=== PATIENT | female | born 1975 | race Two or more races ===

== ENCOUNTER 2017-08-26 00:30 | Emergency (ER) | payer OTHER ==
[2017-08-26] MEDS ORDERED: cefTRIAXone IM 1 GM VIAL IM (01:33)
[2017-08-26] MEDS ORDERED: HYDROcodone/APAP 5/325MG 1 TAB TABLET (01:33)
[2017-08-26] MEDS: cefTRIAXone IM 1 GM VIAL IM (01:40)
[2017-08-26] MEDS: HYDROcodone/APAP 5/325MG 1 TAB TABLET PO (01:40)
== END 2017-08-26 01:14 | disposition home or self-care (01) ==
LOC: ER 00:30
DX: K02.9 Dental caries, unspecified (principal); K04.7 Periapical abscess without sinus
CPT/HCPCS: 96372; 99283-25; J0696

== ENCOUNTER 2018-08-04 10:15 | Emergency (ER) | payer OTHER ==
[~2018-08-04] VITALS: Ht 154.9 cm; Wt 81.6 kg
[~2018-08-04 10:15] MED LIST: CEPH-264 PO; METF10007 PO; NAPR-683 PO
--- NOTE | 2018-08-04 10:29 | PHYS DOC ---
Past Medical History Past Medical History: Diabetes-Type II Past Surgical History: No Surgical History Alcohol Use: None Drug Use: None Adult General Chief Complaint Chief Complaint: CHEST PAIN HPI HPI 43-year-old female presenting the emergency department today with chest pain. Her chest pain at the present for approximately 24 hours. It is a sharp shooting pain that is nonradiating. Its worse with deep breaths. She took ibuprofen with minimal relief. She denies any history of DVTs or family history of blood clotting disorders. She denies any recent immobilization or surgery. She denies hemoptysis. She has diabetes but denies hyperlipidemia or family history of heart disease or being a smoker. Review of systems is negative for abdominal pain nausea vomiting diaphoresis fevers or chills. All other review of systems is negative unless otherwise noted in history of present illness. ED course: 43-year-old female presenting the emergency department today with chest pain. Positive for 24 hours. EKG obtained and reviewed by myself shows sinus rhythm with a regular rate. QTc is mildly prolonged. ST segments are congruent. Not suggestive of ACS. Nonspecific T-wave flattening present. 11:13AM Repeat EKG shows no acute evolving changes. Repeat troponin is negative. Heart score calculated to be low risk. We will discharge patient home today to follow up with cardiology tomorrow or to return if her pain worsens.The patient has been examined and was not found to have an emergency medical condition. The patient was then discharged home in stable condition to follow up with their primary care physician over the next 1-2 days. They were to return if their symptoms worsened or if they were concerned for any reason. They were also instructed to return to the emergency department if they were unable to get the recommended and appropriate follow-up. [id number] discharge instructions and return precautions were given. Patient's questions were answered to their satisfaction. Patient is comfortable with plan. HEART SCORE History Slightly suspicious 0 Moderately suspicious +1 Highly suspicious +2 EKG 1 point: No ST depression but LBBB, LVH, repolarization changes (ex: digoxin); 2 points: ST depression/elevation not due to LBBB, LVH, or digoxin Normal 0 Non-specific repolarization disturbance +[address] depression +2 Age <45 0 45-65 +1 65 +2 Risk factors Risk factors: HTN, hypercholesterolemia, DM, obesity (BMI >30 kg/m), smoking (current, or smoking cessation 3 mo), positive family history (parent or sibling with CVD before age 65); atherosclerotic disease: prior MD, PCI/CABG, CVA/TIA, or peripheral arterial disease No known risk factors 0 1-2 risk factors +1 3 risk factors or history of atherosclerotic disease +2 Initial troponin Use local assays and corresponding cutoffs normal limit 0 1-2 normal limit +1 >2 normal limit +2 Total 2 points Review of Systems Review of Systems SEE ABOVE. Current Medications Current Medications Current Medications Medications (Trade) Dose Ordered Sig/Lily Start Time Stop Time Status Last Admin Dose Admin Morphine Sulfate (Morphine Sulfate) 2 mg PRN Q1HR PRN 08/04/18 11:15 08/04/18 23:00 08/04/18 12:31 2 MG Allergies Allergies Allergies Coded Allergies Type Severity Reaction Last Updated Verified No Known Drug Allergies 08/26/17 No Physical Exam Physical Exam SEE ABOVE Constitutional: Well developed, well nourished, no acute distress, non-toxic appearance. [] HENT: Normocephalic, atraumatic, bilateral external ears normal, oropharynx moist, no oral exudates, nose normal. [] Eyes: PERRLA, EOMI, conjunctiva normal, no discharge. [] Neck: Normal range of motion, no tenderness, supple, no stridor. [] Cardiovascular:Heart rate regular rhythm, no murmur [] Lungs & Thorax: Bilateral breath sounds clear to auscultation [] Abdomen: Bowel sounds normal, soft, no tenderness, no masses, no pulsatile masses. [] Skin: Warm, dry, no erythema, no rash. [] Back: No tenderness, no CVA tenderness. [] Extremities: No tenderness, no cyanosis, no clubbing, ROM intact, no edema. [] Neurologic: Alert and oriented X 3, normal motor function, normal sensory function, no focal deficits noted. [] Psychologic: Affect normal, judgement normal, mood normal. [] Current Patient Data Vital Signs Vital Signs Date Time Temp Pulse Resp B/P (MAP) Pulse Ox O2 Delivery O2 Flow Rate FiO2 08/04/18 12:31 78 109/58 (75) 99 Room Air 08/04/18 10:24 98.7 18 98.7 Lab Values Laboratory Tests Test 08/04/18 10:45 08/04/18 12:45 White Blood Count 5.2 x10^3/uL (4.0-11.0) Red Blood Count 4.64 x10^6/uL (3.50-5.40) Hemoglobin 13.6 g/dL (12.0-15.5) Hematocrit 40.5 % (36.0-47.0) Mean Corpuscular Volume 87 fL (79-100) Mean Corpuscular Hemoglobin 29 pg (25-35) Mean Corpuscular Hemoglobin Concent 34 g/dL (31-37) Red Cell Distribution Width 13.0 % (11.5-14.5) Platelet Count 181 x10^3/uL (140-400) Neutrophils (%) (Auto) 55 % (31-73) Lymphocytes (%) (Auto) 37 % (24-48) Monocytes (%) (Auto) 7 % (0-9) Eosinophils (%) (Auto) 1 % (0-3) Basophils (%) (Auto) 1 % (0-3) Neutrophils # (Auto) 2.8 x10^3uL (1.8-7.7) Lymphocytes # (Auto) 1.9 x10^3/uL (1.0-4.8) Monocytes # (Auto) 0.4 x10^3/uL (0.0-1.1) Eosinophils # (Auto) 0.1 x10^3/uL (0.0-0.7) Basophils # (Auto) 0.0 x10^3/uL (0.0-0.2) Segmented Neutrophils % 51 % (35-66) Lymphocytes % 39 % (24-48) Monocytes % 9 % (0-10) Eosinophils % 1 % (0-5) Platelet Estimate Adequate (ADEQUATE) D-Dimer (Ngozi) < 0.27 ug/mlFEU Sodium Level 142 mmol/L (136-145) Potassium Level 4.3 mmol/L (3.5-5.1) Chloride Level 105 mmol/L (98-107) Carbon Dioxide Level 28 mmol/L (21-32) Anion Gap 9 (6-14) Blood Urea Nitrogen 10 mg/dL (7-20) Creatinine 0.9 mg/dL (0.6-1.0) Estimated GFR (Cockcroft-Gault) 68.3 Glucose Level 235 mg/dL (70-99) H Calcium Level 9.3 mg/dL (8.5-10.1) Total Bilirubin 0.7 mg/dL (0.2-1.0) Direct Bilirubin 0.1 mg/dL (0.0-0.2) Aspartate Amino Transferase (AST) 34 U/L (15-37) Alanine Aminotransferase (ALT) 50 U/L (14-59) Alkaline Phosphatase 72 U/L (46-116) Troponin I Quantitative < 0.017 ng/mL (0.000-0.055) < 0.017 ng/mL (0.000-0.055) Total Protein 7.7 g/dL (6.4-8.2) Albumin 3.7 g/dL (3.4-5.0) Lipase 103 U/L (73-393) Laboratory Tests 08/04/18 10:45 Laboratory Tests 08/04/18 10:45 EKG EKG [] Radiology/Procedures Radiology/Procedures [] Course & Med Decision Making Course & Med Decision Making Pertinent Labs and Imaging studies reviewed. (See chart for details) [] Dragon Disclaimer Dragon Disclaimer This electronic medical record was generated, in whole or in part, using a voice recognition dictation system. Departure Departure Impression: Primary Impression: Chest pain Disposition: HOME, SELF-CARE Condition: STABLE Referrals: UNKNOWN PCP NAME (PCP) Patient Instructions: Chest Pain (Nonspecific) Additional Instructions: Thank you for allowing us to participate in your care today. Return to the emergency department you have any new or worsening symptoms, or if you are concerned for any reason. Return to emergency department if you have any new or concerning symptoms including but not limited to fever, chills, nausea, vomiting, intractable pain, any new rashes, chest pain, shortness of air , uncontrolled bleeding, difficulty breathing, and/or vision loss. Follow up with cardiology in 1-2 days. Call your Primary Doctor tomorrow and inform them of your visit today. If you do not have a primary care provider we are happy to provide you with a list of our primary care providers contact information. This condition should be evaluated by your primary care physician and any recommended consulting services for continued management within 2 days after discharge. If at any time, you are having difficulty getting into your primary care doctor or a specialist, return to the emergency department. JOAQUIN LOVE MD Aug 04, 2018 10:29
[2018-08-04 10:52] LABS: BASO % 1 % (0-3); EOS # 0.1 x10^3/uL (0.0-0.7); EOS % 1 % (0-3); HEMATOCRIT 40.5 % (36.0-47.0); HEMOGLOBIN 13.6 g/dL (12.0-15.5); LYMPH # 1.9 x10^3/uL (1.0-4.8); LYMPH % 37 % (24-48); MEAN CORPUSCULAR HEMOGLOBIN 29 pg (25-35); MEAN CORPUSCULAR HGB CONC 34 g/dL (31-37); MEAN CORPUSCULAR VOLUME 87 fL (79-100); MONO # 0.4 x10^3/uL (0.0-1.1); MONO % 7 % (0-9); NEUT # 2.8 x10^3uL (1.8-7.7); NEUT % 55 % (31-73); PLATELET COUNT 181 x10^3/uL (140-400); RED BLOOD COUNT 4.64 x10^6/uL (3.50-5.40); WHITE BLOOD COUNT 5.2 x10^3/uL (4.0-11.0)
[2018-08-04 11:01] LABS: CALCIUM 9.3 mg/dL (8.5-10.1); CREATININE 0.9 mg/dL (0.6-1.0); GFR 68.3; POTASSIUM 4.3 mmol/L (3.5-5.1)
[2018-08-04 11:10] LABS: ALBUMIN 3.7 g/dL (3.4-5.0); DIRECT BILIRUBIN 0.1 mg/dL (0.0-0.2); TOTAL BILIRUBIN 0.7 mg/dL (0.2-1.0); TOTAL PROTEIN 7.7 g/dL (6.4-8.2)
[2018-08-04] MEDS ORDERED: MORPHINE SULFATE 2 MG/ML VIAL. IV PRN (11:15)
--- NOTE | 2018-08-04 11:22 | RAD ---
EXAM: CHEST 1 VIEW History: Shortness of breath COMPARISON: None available. TECHNIQUE: Single portable radiograph of the chest FINDINGS: The cardiac silhouette is unremarkable. Minimal prominent appearing bilateral interstitial lung markings likely mild congestive changes. The costophrenic sulci are clear and well demarcated. IMPRESSION: Mild prominent appearing bilateral interstitial lung markings likely mild congestive changes. Electronically signed by: August James MD (08/04/2018 11:19 AM) [id number]
--- NOTE | 2018-08-04 11:29 | EKG ---
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
[2018-08-04 12:25] LABS: % EOS 1 % (0-5); % LYMPHS 39 % (24-48); % MONOS 9 % (0-10); % SEGS 51 % (35-66); PLT ESTIMATE ADEQUATE (ADEQUATE)
[2018-08-04 12:31] VITALS: BP 109/58
--- NOTE | 2018-08-04 12:39 | EKG ---
[facility] [address] [place] [address] Test Date: 2018-08-04 Test Time: 11:54:23 Pat Name: SOFÍA TANG Department: Room: Gender: F [employer]: : 1975 Requested By: JOAQUIN LOVE Order Number: [id number] Reading MD: Jose Antonio Goodwin MD Measurements Intervals [place] Rate: 70 P: 27 DE: 140 QRS: 13 QRSD: 70 T: 19 QT: 424 QTc: 460 Interpretive Statements SINUS RHYTHM NON-SPECIFIC ST/T CHANGES Electronically Signed On 08-04-2018 17:34:12 CDT by Jose Antonio Goodwin MD
== END 2018-08-04 13:46 | disposition home or self-care (01) ==
LOC: ER 10:15
DX: R07.89 Other chest pain (principal); E11.9 Type 2 diabetes mellitus without complications
CPT/HCPCS: 36415; 71045; 80048; 80076; 83690; 84484; 85007; 85025; 85379; 93005; 96374; 99284; J2270

== ENCOUNTER 2019-09-08 22:01 | Emergency (ER) | payer OTHER ==
[~2019-09-08] VITALS: Ht 152.4 cm; Wt 82.0 kg
[2019-09-08] MEDS ORDERED: fentaNYL PF VIAL 100 MCG/2 ML VIAL IV PRN (23:15)
--- NOTE | 2019-09-08 23:16 | PHYS DOC ---
Past Medical History Past Medical History: Diabetes-Type II Past Surgical History: No Surgical History Smoking Status: Never Smoker Alcohol Use: None Drug Use: None General Adult EDM: Chief Complaint: GI PROBLEM HPI: HPI: Patient is a 44 year old female who presents with complaint of epigastric abdominal pain that started at about 6:00 PM after eating dinner. Patient indicates that pain radiates down towards the belly button as well. She states that she has had some nausea but no vomiting. She describes the pain is a burning pain in her abdomen. Denies any radiation into the back. She denies any chest pain or shortness of breath. She denies any fever.[] Review of Systems: Review of Systems: Constitutional: Denies fever or chills. [] Respiratory: Denies cough or shortness of breath. [] Cardiovascular: Denies chest pain or edema. [] GI: Complains of epigastric abdominal pain with nausea. Denies diarrhea. [] Integument: Denies rash. [] Neurologic: Denies headache, focal weakness or sensory changes. [] A full 10 point review of systems has been reviewed and is otherwise negative. Heart Score: Risk Factors: Risk Factors: DM, Current or recent (<one month) smoker, HTN, HLP, family history of CAD, obesity. Risk Scores: Score 0 - 3: 2.5% MACE over next 6 weeks - Discharge Home Score 4 - 6: 20.3% MACE over next 6 weeks - Admit for Clinical Observation Score 7 - 10: 72.7% MACE over next 6 weeks - Early Invasive Strategies Current Medications: Current Medications Medications (Trade) Dose Ordered Sig/[facility] Start Time Stop Time Status Last Admin Dose Admin Famotidine (Pepcid Vial) 20 mg 1X ONCE 09/08/19 23:30 09/08/19 23:31 Fentanyl Citrate (Fentanyl 2ml Vial) 50 mcg PRN Q15MIN PRN 09/08/19 23:15 09/09/19 23:14 Multi-Ingredient Mouthwash/Gargle (Gi Cocktail) 20 ml 1X ONCE 09/08/19 23:30 09/08/19 23:31 Ondansetron HCl (Zofran) 4 mg 1X ONCE 09/08/19 23:30 09/08/19 23:31 Sodium Chloride 1,000 ml @ 1,000 mls/hr Q1H 09/08/19 23:30 09/09/19 00:29 Allergies: Allergies: Allergies Coded Allergies Type Severity Reaction Last Updated Verified No Known Drug Allergies 08/26/17 No Physical Exam: PE: Constitutional: Well developed, well nourished, no acute distress, non-toxic appearance. [] HENT: Normocephalic, atraumatic, bilateral external ears normal, oropharynx moist, no oral exudates, nose normal. [] Eyes: PERRLA, EOMI, conjunctiva normal, no discharge. [] Neck: Normal range of motion, no tenderness, supple, no stridor. [] Cardiovascular: Regular rate and rhythm[] Lungs & Thorax: Bilateral breath sounds clear to auscultation [] Abdomen: Bowel sounds normal, soft, with moderate epigastric tenderness. [] Skin: Warm, dry, no erythema, no rash. [] Extremities: No tenderness, no cyanosis, no clubbing, ROM intact, no edema. [] Neurologic: Alert and oriented X 3, no focal deficits noted. [] Current Patient Data: Vital Signs: Vital Signs Date Time Temp Pulse Resp B/P (MAP) Pulse Ox O2 Delivery O2 Flow Rate FiO2 09/08/19 22:43 99.9 76 18 123/66 (85) 99 Room Air 99.9 EKG: EKG: [] Radiology/Procedures: Radiology/Procedures: [] Impression: PROCEDURE: CT ABD PELV W/ IV CONTRST ONLY Study: CT abdomen/pelvis with intravenous contrast Indication: Upper abdominal pain. Comparison: None. Technique: Helical CT imaging performed of the abdomen and pelvis after the intravenous administration of 75 cc Omnipaque 300 contrast. Sagittal and coronal reformats were obtained. One or more of the following individualized dose reduction techniques were utilized for this examination: 1. Automated exposure control 2. Adjustment of the mA and/or kV according to patient size 3. Use of iterative reconstruction technique. Findings: The study is degraded by motion artifact. Chest: Mild right middle lobe atelectasis. Unremarkable visualized mediastinal contents. Liver: Hepatic steatosis. Gallbladder/Biliary Tree: The gallbladder is also collapse. No biliary tree dilatation. Pancreas: Unremarkable. Spleen: Unremarkable. Adrenal Glands: Unremarkable. Kidneys/Ureters/Bladder: No focal renal parenchymal abnormality. No hydroureteronephrosis. Mildly distended urinary bladder. Reproductive Organs: Left ovarian cystic focus on image 70 series 2 measures up to 3.8 cm. No complicating features by CT. The right ovary is unremarkable as is the uterus. Colon: Unremarkable. Appendix: Normal. Small Bowel: Nonobstructed. Stomach: Not well evaluated due to underdistention. Vasculature: Unremarkable. Lymph Nodes: Within normal limits for size. Peritoneum and Body Wall: No free fluid or air. No acute abnormality of the body wall soft tissues. Bones: Diastatic pubic symphysis favored a chronic finding. Normal vertebral body height and alignment. Miscellaneous: None. Impression: 1. Degraded study on account of motion artifact. 2. No acute abnormality is seen throughout the abdomen or pelvis. 3. 3.8 cm simple appearing ovarian cyst on the left. No findings of cyst rupture. 4. Hepatic steatosis. Electronically signed by: ROSA ROBERTSON MD (09/09/2019 1:31 AM) [id number] DICTATED and SIGNED BY: ROSA ROBERTSON MD DATE: 09/09/19 0131 Course & Med Decision Making: Course & Med Decision Making Pertinent Labs and Imaging studies reviewed. (See chart for details) [] Dragon Disclaimer: Dragon Disclaimer: This electronic medical record was generated, in whole or in part, using a voice recognition dictation system. Departure Departure Impression: Primary Impression: Gastritis and gastroduodenitis Disposition: 01 HOME, SELF-CARE Condition: STABLE Referrals: UNKNOWN PCP NAME (PCP) Patient Instructions: Gastritis, Adult Scripts Pantoprazole Sodium (PROTONIX ) 40 Mg Tablet. 40 MG PO DAILYAC for GERD, #30 TAB Prov: ABDELRAHMAN GORDON Jr. DO 09/09/19 Ondansetron (ONDANSETRON ODT) 4 Mg Tab.rapdis 1 TAB PO PRN Q6-8HRS PRN for NAUSEA, #15 TAB Prov: ABDELRAHMAN GORDON Jr. DO 09/09/19 ABDELRAHMAN GORDON Jr. DO Sep 08, 2019 23:16
[2019-09-08 23:21] LABS: BASO % 1 % (0-3); EOS # 0.9 x10^3/uL (0.0-0.7); EOS % 12 % (0-3); HEMATOCRIT 39.3 % (36.0-47.0); LYMPH # 2.3 x10^3/uL (1.0-4.8); LYMPH % 29 % (24-48); MEAN CORPUSCULAR HEMOGLOBIN 29 pg (25-35); MEAN CORPUSCULAR HGB CONC 33 g/dL (31-37); MEAN CORPUSCULAR VOLUME 88 fL (79-100); MONO # 0.5 x10^3/uL (0.0-1.1); MONO % 7 % (0-9); NEUT # 4.1 x10^3/uL (1.8-7.7); NEUT % 52 % (31-73); PLATELET COUNT 165 x10^3/uL (140-400); RED BLOOD COUNT 4.45 x10^6/uL (3.50-5.40); RED CELL DISTRIBUTION WIDTH 13.6 % (11.5-14.5); WHITE BLOOD COUNT 7.8 x10^3/uL (4.0-11.0)
[2019-09-08 23:28] LABS: CALCIUM 8.9 mg/dL (8.5-10.1); CREATININE 0.7 mg/dL (0.6-1.0); GFR 90.9; POTASSIUM 3.9 mmol/L (3.5-5.1)
[2019-09-08] MEDS ORDERED: IV NORMAL SALINE 1000ML BAG 1,000 ML IV SCH (23:30)
[2019-09-08] MEDS ORDERED: LIDO:MAALOX 1:1 20 ML SINGLE DOSE. SWSW ONE (23:30)
[2019-09-08] MEDS ORDERED: ONDANSETRON PF 4 MG/2 ML VIAL. IVP ONE (23:30)
[2019-09-08] MEDS ORDERED: FAMOTIDINE 20 MG/2 ML VIAL IVP ONE (23:30)
[2019-09-08 23:33] LABS: ALBUMIN 3.4 g/dL (3.4-5.0); TOTAL BILIRUBIN 0.3 mg/dL (0.2-1.0); TOTAL PROTEIN 6.9 g/dL (6.4-8.2)
[2019-09-08] MEDS ORDERED: CONTRAST GIVEN. MC PRN (23:45)
[2019-09-08 23:54] LABS: BILIRUBIN,URINE NEGATIVE (NEG); CLARITY,URINE CLEAR; COLOR,URINE YELLOW; NITRITE,URINE NEGATIVE (NEG); PROTEIN,URINE NEGATIVE (NEG-TRACE); UROBILINOGEN,URINE 0.2 mg/dL (0.2 mg/dL)
[2019-09-08 23:58] LABS: BACTERIA,URINE 0 /HPF (0-FEW); RBC,URINE >40 /HPF (0-2); SQUAMOUS EPITHELIAL CELL,UR FEW /LPF
[2019-09-09] MEDS ORDERED: IOHEXOL 300 MG/ML 100ML VIAL. IV ONE (00:30)
[2019-09-09 01:32] VITALS: BP 128/80
--- NOTE | 2019-09-09 01:34 | RAD ---
Study: CT abdomen/pelvis with intravenous contrast Indication: Upper abdominal pain. Comparison: None. Technique: Helical CT imaging performed of the abdomen and pelvis after the intravenous administration of 75 cc Omnipaque 300 contrast. Sagittal and coronal reformats were obtained. One or more of the following individualized dose reduction techniques were utilized for this examination: 1. Automated exposure control 2. Adjustment of the mA and/or kV according to patient size 3. Use of iterative reconstruction technique. Findings: The study is degraded by motion artifact. Chest: Mild right middle lobe atelectasis. Unremarkable visualized mediastinal contents. Liver: Hepatic steatosis. Gallbladder/Biliary Tree: The gallbladder is also collapse. No biliary tree dilatation. Pancreas: Unremarkable. Spleen: Unremarkable. Adrenal Glands: Unremarkable. Kidneys/Ureters/Bladder: No focal renal parenchymal abnormality. No hydroureteronephrosis. Mildly distended urinary bladder. Reproductive Organs: Left ovarian cystic focus on image 70 series 2 measures up to 3.8 cm. No complicating features by CT. The right ovary is unremarkable as is the uterus. Colon: Unremarkable. Appendix: Normal. Small Bowel: Nonobstructed. Stomach: Not well evaluated due to underdistention. Vasculature: Unremarkable. Lymph Nodes: Within normal limits for size. Peritoneum and Body Wall: No free fluid or air. No acute abnormality of the body wall soft tissues. Bones: Diastatic pubic symphysis favored a chronic finding. Normal vertebral body height and alignment. Miscellaneous: None. Impression: 1. Degraded study on account of motion artifact. 2. No acute abnormality is seen throughout the abdomen or pelvis. 3. 3.8 cm simple appearing ovarian cyst on the left. No findings of cyst rupture. 4. Hepatic steatosis. Electronically signed by: ROSA ROBERTSON MD (09/09/2019 1:31 AM) [id number]
[2019-09-09] MEDS ORDERED: ONDA4TAB12 PO (01:38)
[2019-09-09] MEDS ORDERED: PANT40TA77 PO (01:38)
== END 2019-09-09 01:50 | disposition home or self-care (01) ==
LOC: ER 22:01
DX: K29.70 Gastritis, unspecified, without bleeding (principal); K29.90 Gastroduodenitis, unspecified, without bleeding; E11.9 Type 2 diabetes mellitus without complications
CPT/HCPCS: 36415; 74177; 80053; 81001; 81025; 83690; 85025; 87086; 96361; 96374; 96375; 99285; J2405; J3010; J3490; J7030; Q9967

== ENCOUNTER 2020-07-26 23:57 | Emergency (ER) | payer OTHER ==
[~2020-07-26] VITALS: Ht 160 cm; Wt 86.4 kg
[~2020-07-26 23:57] MED LIST changes: +ONDA4TAB12 PO; +PANT40TA77 PO
--- NOTE | 2020-07-27 00:36 | PHYS DOC ---
Past Medical History Past Medical History: Diabetes-Type II Past Surgical History: No Surgical History Smoking Status: Never Smoker Alcohol Use: None Drug Use: None General Adult EDM: Chief Complaint: OTHER COMPLAINTS HPI: HPI: Patient is a 45 year old female with history of diabetes presents for a 1 day history of throat burning sensation. 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 Per patient and her , patient started experiencing burning sensation localized behind the upper sternum region last night during dinner. Patient patient reports that this is the first time she ever encounters such symptoms. Patient's denies taking any medications except for Metformin. Patient reports ever since yesterday food and drinks will cause discomfort at her throat. She was still able to eat something today and drink water. Patient denies any chest pain, shortness of breath, nausea and vomiting, cough, abdominal pain, and numbness and tingling her hands and feet. Review of Systems: Review of Systems: Review of systems: Constitutional symptoms- No fever, no chills. Eyes- No Discharge, No Visual Loss Respiratory symptoms- No shortness of breath, No wheezing, No Dyspnea on Exertion Cardiovascular Systems; No chest pain, No Palpitations, No syncope Gastrointestinal symptoms: NO abdominal pain, no nausea, no vomiting or diarrhea. Patient endorsed burning sensations behind the sternum and acid re flux. Genitourinary symptoms: No dysuria. Musculoskeletal symptoms: No back pain No extremity pain. NEUROLOGICAL Symptoms: No headache, no generalized weakness; No focal Weakness Heart Score: C/O Chest Pain: No HEART Score for Chest Pain: HEART Score for Chest Pain Response (Comments) Value History Slighlty/Non-Suspicious 0 ECG Normal 0 Age < 45 0 Risk Factors 1 or 2 Risk Factors 1 Troponin < Normal Limit 0 Total 1 Risk Factors: Risk Factors: DM, Current or recent (<one month) smoker, HTN, HLP, family history of CAD, obesity. Risk Scores: Score 0 - 3: 2.5% MACE over next 6 weeks - Discharge Home Score 4 - 6: 20.3% MACE over next 6 weeks - Admit for Clinical Observation Score 7 - 10: 72.7% MACE over next 6 weeks - Early Invasive Strategies Allergies: Allergies: Allergies Coded Allergies Type Severity Reaction Last Updated Verified No Known Drug Allergies 08/26/17 No Physical Exam: PE: General: alert, no acute distress. Skin: warm, dry and intact. Head:: Normocephalic, atraumatic. Neck: Neck palpation elicits no tenderness or other abnormalities. Trachea midline. Eyes: EOMI, Normal conjunctiva, No drainage CARDIOVASCULAR: Regular rate and rhythm RESPIRATORY: No respiratory distress Back: Full range of motion. MUSCULOSKELETAL: Full range of motion of bilateral upper and lower extremities. GASTROINTESTINAL: Abdomen soft without rebound or guarding. NEUROLOGICAL: Alert and noted to person, place and time. No neurological deficits observed Psychiatric: Cooperative. Normal judgment Current Patient Data: Vital Signs: Vital Signs Date Time Temp Pulse Resp B/P (MAP) Pulse Ox O2 Delivery O2 Flow Rate FiO2 07/27/20 00:04 97.5 80 18 131/61 (84) 100 Room Air 97.5 EKG: EKG: EKG performed at 0106 sinus rhythm heart rate [address] ST depression no acute SC [] Radiology/Procedures: Radiology/Procedures: [] Course & Med Decision Making: Course & Med Decision Making Pertinent Labs and Imaging studies reviewed. (See chart for details) [] Patient was evaluated for chief complaint. Based upon history of present illness and physical exam EKG was ordered. EKG without acute ischemic changes. Medical concern for acid reflux based upon history. Patient was treated with a GI cocktail with mild improvement. Will discharge patient home on Protonix. Gregg Disclaimer: Gregg Disclaimer: This electronic medical record was generated, in whole or in part, using a voice recognition dictation system. Departure Departure Impression: Primary Impression: GERD (gastroesophageal reflux disease) Disposition: 01 HI HOME SELF CARE/HOMELESS Condition: STABLE Referrals: UNKNOWN PCP NAME (PCP) Patient Instructions: Gastroesophageal Reflux Disease, Adult Scripts Pantoprazole Sodium (PROTONIX ) 40 Mg Tablet. 40 MG PO DAILYAC for GERD, #30 TAB Prov: KURT ARORA DO 07/27/20 KURT ARORA DO Jul 27, 2020 00:36
[2020-07-27] MEDS: LIDO:MAALOX 1:1 20 ML SINGLE DOSE. SWSW ONE (01:05)
[2020-07-27] MEDS: FAMOTIDINE 20 MG TABLET. PO ONE (01:27)
--- NOTE | 2020-07-27 01:33 | EKG ---
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
[2020-07-27] MEDS ORDERED: PANT40TA77 PO (03:14)
[2020-07-27 03:28] VITALS: BP 112/71
== END 2020-07-27 03:29 | disposition home or self-care (01) ==
LOC: ER 23:57
DX: K21.9 Gastro-esophageal reflux disease without esophagitis (principal); R20.8 Other disturbances of skin sensation; E11.9 Type 2 diabetes mellitus without complications
CPT/HCPCS: 36415; 84484; 93005; 99285